=== PATIENT | male | born 1965 | race Caucasian/White ===

== ENCOUNTER → 2021-11-27 | Outpatient (CLI) | payer OTHER ==
--- NOTE | 2021-11-27 13:42 | US ---
EXAMINATION TYPE: US venous doppler duplex LE LT DATE OF EXAM: 11/27/2021 1:32 PM COMPARISON: NONE CLINICAL HISTORY: T80.90XA INJECTION SITE REACTION, R22.9 SWELLING. Swelling. No hx of DVT. Patient d oes not take blood thinners. SIDE PERFORMED: Left TECHNIQUE: The lower extremity deep venous system is examined utilizing real time linear array sonog camilla with graded compression, doppler sonography and color-flow sonography. VESSELS IMAGED: Common Femoral Vein Deep Femoral Vein Greater Saphenous Vein * Femoral Vein Popliteal Vein Small Saphenous Vein * Proximal Calf Veins (* superficial vessels) Left Leg: No evidence of DVT in veins imaged at this time. IMPRESSION: No evidence for DVT at this time.
== END | disposition home or self-care (01) ==
LOC: RADUSWWP 13:00
PROVIDERS: ATTEND Family Medicine
DX: T80.90XA Unspecified complication following infusion and therapeutic injection, initial encounter (principal); R22.9 Localized swelling, mass and lump, unspecified; Y82.8 Other medical devices associated with adverse incidents